=== PATIENT | female | born 2000 | race Caucasian/White ===

== ENCOUNTER 2020-06-24 16:21 | Emergency (ER) | payer MEDICAID, SELFPAY ==
--- NOTE | 2020-06-24 | XR_ITS ---
EXAMINATION: XR CHEST CLINICAL INFORMATION: Cough COMPARISON: Chest x-ray 08/03/2018 TECHNIQUE: Frontal portable views of the chest were obtained. 6:19 PM FINDINGS: The cardiac and mediastinal contours is normal. There is no pulmonary vascular congestion. There is no infiltrate or pleural effusion. IMPRESSION: Normal chest.
[2020-06-24 17:57] VITALS: BP 146/84; PULSE 86; RESP 16; TEMP 37.4; O2SAT 100; BMI 21.9
--- NOTE | 2020-06-24 19:47 | ED_ITS ---
HPI - URI/Sore Throat General Chief Complaint: Dyspnea <Alcides Zhang NP - Last Filed: 06/24/20 19:57> Stated Complaint: fever <Alcides Zhang NP - Last Filed: 06/24/20 19:57> Time Seen by Provider: 06/24/20 19:47 <Alcides Zhang NP - Last Filed: 06/24/20 19:57> Source: patient <Alcides Zhang NP - Last Filed: 06/24/20 19:57> Mode of arrival: ambulatory <Alcides Zhang NP - Last Filed: 06/24/20 19:57> Limitations: no limitations <Alcides Zhang NP - Last Filed: 06/24/20 19:57> History of Present Illness HPI Narrative: cough/runny nose /congestion <Alcides Zhang NP - Last Filed: 06/24/20 19:57> MD elicited complaint: cough, rhinorrhea and nasal congestion <Alcides Zhang NP - Last Filed: 06/24/20 19:57> Onset (ago): day(s) (2 days ) <Alcides Zhang NP - Last Filed: 06/24/20 19:57> Severity: moderate <Alcides Zhang NP - Last Filed: 06/24/20 19:57> Description of mucous: clear <Alcides Zhang NP - Last Filed: 06/24/20 19:57> Able to tolerate fluids by mouth: Yes <Alcides Zhang NP - Last Filed: 06/24/20 19:57> Treatments prior to arrival: none <Alcides Zhang NP - Last Filed: 06/24/20 19:57> Related Data Allergies/Adverse Reactions: Allergies Allergy/AdvReac Type Severity Reaction Status Date / Time No Known Allergies Allergy Verified 06/24/20 17:59 <Alcides Zhang NP - Last Filed: 06/24/20 19:57> Review of Systems Review of Systems: Constitutional: No Weight loss, No Fever, + Chills, No Night Sweats, No Fatigue, No Malaise ENT/Mouth: No Hearing loss, No Ear Pain, No Nasal Congestion, No Sinus Pain, No Hoarseness, No sore throat, No Rhinorrhea, No Swallowing Difficulty Eyes: No Eye Pain, No Swelling, No Redness, No Foreign Body, No Discharge, No Vision Changes Cardiovascular: No Chest Pain, No SOB, No Dyspnea on Exertion, No Orthopnea, No Edema, No Palpitations Respiratory: + Cough, No Sputum, No Wheezing, No Smoke Exposure, No Dyspnea Gastrointestinal: No Nausea, No Vomiting, No Diarrhea, No Constipation, No abdominal Pain, No Hematochezia, No Melena Genitourinary: no irregular bleeding, No Dysuria, No Urinary Frequency, No Hematuria, No Urinary Incontinence, No Urgency, No Flank Pain, No Urinary Flow Changes, No Hesitancy Musculoskeletal: No joint pain, No Myalgias, No Joint Swelling Skin: No Skin Lesions, No rash Neuro: No Weakness, No Numbness, No Paresthesias, No Loss of Consciousness, No Dizziness, No Headache Psych: No Anxiety/Panic, No Depression, No SI/HI/AH/VH, No Social Issues, Heme/Lymph: No Bruising, No Bleeding,No Lymphadenopathy Endocrine: No Polyuria, No Polydipsia, No Temperature Intolerance <Alcides Zhang NP - Last Filed: 06/24/20 19:57> [facility] Past Medical History Attestation statement: The following information was validated with the patient. <Alcides Zhang NP - Last Filed: 06/24/20 19:57> Medical History: Medical History (Updated 06/27/20 @ 00:01 by Nancy Garcia) Patient denies significant medical history <Alcides Zhang NP - Last Filed: 06/24/20 19:57> Social History Social History: Social History Advance Directives: No <Alcides Zhang NP - Last Filed: 06/24/20 19:57> Physical Exam Vital Signs: Vital Signs: Vital Signs Temp Pulse Resp BP Pulse Ox 06/24/20 17:57 99.4 F 86 16 146/84 H 100 Body Mass Index 21.9 Reviewed <Alcides Zhang NP - Last Filed: 06/24/20 19:57> Vital Signs: Vital Signs Temp Pulse Resp BP Pulse Ox 06/24/20 17:57 99.4 F 86 16 146/84 H 100 Body Mass Index 21.9 <Marty Edwards MD - Last Filed: 06/29/20 15:25> Const: General: cooperative and healthy appearing; No acute distress or intoxicated appearing <[facility] Zhang [facility] Last Filed: 06/24/20 19:57> Nutritional Appearance: average body habitus <[facility] Zhang [facility] Last Filed: 06/24/20 19:57> Orientation/consciousness: patient oriented x3 <[facility] Last Filed: 06/24/20 19:57> HENMT: Head: Yes normal to inspection <[facility] Zhang, [facility] Last Filed: 06/24/20 19:57> Ears: hearing grossly normal bilaterally [facility] - Last Filed: 06/24/20 19:57> Eyes: General: appearance normal, both eyes and all related structures <[facility] Last Filed: 06/24/20 19:57> Visual Batres: normal visual batres by confrontation <[facility] Last Filed: 06/24/20 19:57> Neck: Neck: Yes normal visual inspection and No tender <[facility] Last Filed: 06/24/20 19:57> Thyroid: Thyroid normal [facility] Last Filed: 06/24/20 19:57> Chest: Chest palpation & inspection: normal inspection of the chest <[facility] Vicente [facility] Last Filed: 06/24/20 19:57> Resp: Effort & Inspection: normal respiratory effort <[facility] Last Filed: 06/24/20 19:57> Cardio: Jugular venous distension: no JVD <[facility] Last Filed: 06/24/20 19:57> GI: Inspection: Yes normal to inspection <[facility] Last Filed: 06/24/20 19:57> Percussion: Yes normal to percussion <[facility] - Last Filed: 06/24/20 19:57> Auscultation: normal bowel sounds <[facility] - Last Filed: 06/24/20 19:57> : General: Yes no CVA tenderness <[facility] - Last Filed: 06/24/20 19:57> Back/Spine/Pelvis: Back: no CVA tenderness <[facility] - Last Filed: 06/24/20 19:57> Skin: General skin exam: no rashes or lesions noted <Alcides Zhang NP - Last Filed: 06/24/20 19:57> Neuro: General: patient oriented x3 <Alcides Zhang NP - Last Filed: 06/24/20 19:57> Extrem: General: Yes normal to inspection <Alcides Zhang NP - Last Filed: 1 19:57> Course Course Course Narrative: I have reviewed the chart <Marty Edwards MD - Last Filed: 06/29/20 15:25> MDM - URI/Sore Throat Differential Diagnosis Differential diagnosis: Likely upper respiratory infection; Unlikely croup, otitis media, sinusitis, viral infection, bronchitis, influenza and pharyngitis <Alcides Zhang NP - Last Filed: 06/24/20 19:57> Imaging Data Chest x-ray: Radiologist's impression: [place] [id number] XRay Report Signed Patient: Mateo Lange#: [id number] : 2000Acct:[id number] Age/Sex: 19 / FADM Date: 06/24/20 Loc: .ED Attending Dr: Ordering Physician: Generic ED Physician Date of Service: 06/24/20 Procedure(s): XR chest 1V Accession Number(s): [id number] cc: Generic ED Physician~ EXAMINATION: XR CHEST CLINICAL INFORMATION: Cough COMPARISON: Chest x-ray 08/03/2018 TECHNIQUE: Frontal portable views of the chest were obtained. 6:19 PM FINDINGS: The cardiac and mediastinal contours is normal. There is no pulmonary vascular congestion. There is no infiltrate or pleural effusion. IMPRESSION: Normal chest. Dictated By:RICO OLVERA MD Signed By:<Electronically signed by RICO OLVERA MD in OV>06/24/201829 DD/ TD/TT: Horticulture Teacher: LIAN <Alcides Zhang NP - Last Filed: 06/24/20 19:57> Discharge Plan Discharge Clinical Impression: Upper respiratory infection <Alcides Zhang NP - Last Filed: 06/24/20 19:57> Patient Disposition: Home, Self-Care <Alcides Zhang NP - Last Filed: 06/24/20 19:57> Instructions: Viral Syndrome (ED) <Alcides Zhang NP - Last Filed: 06/24/20 19:57> Additional Instructions: Based on your symptoms and history we have sent a COVID-19. Although your RESULT IS PENDING at this time. RESULTS should return within 72 hours. At this time you will be contacted with either NEGATIVE OR POSITIVE results. -Please wait until we contact you for your results. At this time you will be okay for discharge. Please plan for self quarantine for up to 14 days. Do not expose yourself to others. You may not go to work. If testing does come back negative you may return to activities as long as you are no longer having any symptoms for at least 3 days. Please continue to follow cold instructions and wash your hands frequently. You may take Tylenol as directed on the bottle for pain or fever. Patient seen in the emergency department on 03/05/2020 and should be excused from work until negative test results AND until 72 hours without any symptoms AND at least 10 days have passed since symptoms first appeared or since last exposure to COVID-19 positive patient CDC Guidelines for home isolation: - Stay away from others - WEAR A MASK if you are sick AND STAY HOME - Cover your mouth and nose with a tissue when you cough or sneeze. Dispose of tissues in a lined trash can and wash your hands immediately with soap and water for at least 20 seconds. If soap and water are not available, clean hands with alcohol-based hand psych tech that contains at least 60% alcohol. - Clean your hands often with soap and water for at least 20 seconds - Avoid touching your eyes, nose and mouth with unwashed hands - Do not share dishes, drinking glasses, cups, eating utensils, towels, or bedding with other people in your home. After using these items, wash them thoroughly with soap and water or put in the department of natural resources officer. - Clean high-touch surfaces in your isolation area ( sick room and bathroom) every day; let a caregiver clean and disinfect high-touch surfaces in other areas of the home. Clean the area or item with soap and water or another detergent if it is dirty. Then, use a household disinfectant. - Limit contact with pets and animals: If you must care for a pet, wash your hands before and after interacting with them <Alcides Zhang NP - Last Filed: 06/24/20 19:57> Referrals: Physician,None [Primary Care Provider] - 2 days ( your primary care) <Alcides Zhang NP - Last Filed: 06/24/20 19:57> Interventions: ED Discharge Assessment Last Done: 06/24/20 20:01 <Alcides Zhang NP - Last Filed: 06/24/20 19:57> Discharge Date/Time: 06/24/20 20:03 <Alcides Zhang NP - Last Filed: 06/24/20 19:57>
== END 2020-06-24 20:03 | disposition home or self-care (01) ==
PROVIDERS: Emergency Provider Emergency Medicine
DX: J06.9 Acute upper respiratory infection, unspecified (principal); Z20.828 Contact with and (suspected) exposure to other viral communicable diseases; R50.9 Fever, unspecified
CPT/HCPCS: 71045; 87635; 99283; 99284

== ENCOUNTER 2020-06-26 00:12 | Emergency (ER) | payer MEDICAID, SELFPAY ==
[2020-06-26 00:52] VITALS: BP 126/79; PULSE 97; RESP 18; TEMP 37.3; O2SAT 100; BMI 21.5
--- NOTE | 2020-06-26 01:00 | XR_ITS ---
EXAMINATION: XR CHEST CLINICAL INFORMATION: Covid COMPARISON: None TECHNIQUE: Frontal view of the chest was obtained. FINDINGS: The lungs are clear with no focal consolidation. No evidence of pneumothorax, pulmonary edema, or pleural effusions. The cardiomediastinal silhouette is unremarkable. No acute osseous findings. IMPRESSION: No acute cardiopulmonary findings.
--- NOTE | 2020-06-26 01:01 | ED_ITS ---
HPI - General Adult General Chief complaint: General Medical Stated complaint: Chest pressure/Sob -Pending Covid results Time Seen by Provider: 06/26/20 00:59 Source: patient Mode of arrival: ambulatory Limitations: no limitations History of Present Illness HPI narrative: Seen yesterday for COVID symptoms still coughing Onset (ago): day(s) Severity: mild Associated symptoms: cough Treatments prior to arrival: NSAID Related Data Allergies Allergy/AdvReac Type Severity Reaction Status Date / Time No Known Allergies Allergy Verified 06/24/20 17:59 Review of Systems Constitutional: Constitutional: Reports no additional constitutional complaints Eyes: Eyes: Reports no additional eye complaints ENT: Denies dizziness Cardiovascular: Cardiovascular: Reports no additional cardiovascular complaints Respiratory: Respiratory: Reports as per HPI Gastrointestinal: Gastrointestinal: Reports no additional gastrointestinal complaints Genitourinary: Genitourinary: Reports no additional female genitourinary complaints Musculoskeletal: Musculoskeletal: Reports no additional musculoskeletal complaints Integumentary/Breasts: Skin/Breast: Denies rash Neurologic: Reports system reviewed and no additional complaints, except as documented, Denies dizziness and Denies Sensory deficit (Neuro) Psychiatric: Psychiatric: Denies anxiety [facility] Past Medical History Medical History (Updated 06/26/20 @ 02:16 by Marty Edwards MD) Patient denies significant medical history Social History Social History Advance Directives: No Physical Exam Vital Signs: Vital Signs: Vital Signs Temp Pulse Resp BP Pulse Ox 06/26/20 01:23 70 14 104/64 99 06/26/20 00:52 99.1 F 97 18 126/79 100 Body Mass Index 21.5 Const: Other: coughing General: healthy appearing Nutritional Appearance: average body habitus Orientation/consciousness: oriented to person and patient oriented x3 Limitations: no limitations HENMT: Head: Yes normal to inspection Ears: external ears normal General nose exam: Normal external nose present Mouth: Normal oral and palatal mucosa present and oropharynx normal Throat: Yes posterior oropharynx normal Eyes: General: appearance normal, both eyes and all related structures Neck: Other: supple Neck: Yes normal visual inspection Chest: Chest palpation & inspection: normal inspection of the chest Resp: Other: coughing Auscultation: clear to auscultation bilaterally Cardio: Jugular venous distension: no JVD Rate: regular rate Rhythm: regular rhythm Heart sounds: S1 normal heart sound present and S2 normal heart sound present GI: Inspection: Yes normal to inspection Palpation (GI): Soft to palpation, nontender and No hepatosplenomegaly present Auscultation: normal bowel sounds : General: Yes no CVA tenderness Back/Spine/Pelvis: Back: no CVA tenderness Skin: General skin exam: no rashes or lesions noted Neuro: General: oriented to person and patient oriented x3 Cranial nerves: Yes CN's II-XII intact bilaterally Motor exam (neuro): 5/5 motor strength present throughout Sensory Exam: No Sensory deficit (Neuro) Extrem: General: Yes normal to inspection Psych: Appearance: grossly normal Course Course Course Narrative: xray negative, will dc home Medical Decision Making Differential Diagnosis Differential Diagnosis: URI, coronavirus Lab Data Labs: Lab Results 06/26/20 Range/Units 01:25 Urine Test NEGATIVE (NEGATIVE) Discharge Plan Discharge Clinical Impression: Coronavirus infection Patient Disposition: Home, Self-Care Instructions: COVID-19 (Coronavirus Disease 2019) (ED) Additional Instructions: Keep yourself quarantined Referrals: Physician,Unknown [Primary Care Provider] - 2 days
[2020-06-26 01:23] VITALS: BP 104/64; PULSE 70; RESP 14; O2SAT 99
[2020-06-26 01:32] LABS: UPreg QC Valid YES; Urine Pregnancy NEGATIVE (NEGATIVE)
== END 2020-06-26 02:40 | disposition home or self-care (01) ==
PROVIDERS: Emergency Provider Emergency Medicine
DX: U07.1 COVID-19 (principal)
CPT/HCPCS: 71045; 81025; 99283

== ENCOUNTER 2020-11-03 09:37 | Emergency (ER) | payer MEDICAID, SELFPAY ==
--- NOTE | ~2020-11-03 | US_ITS ---
EXAMINATION: US OBSTETRICAL ULTRASOUND (US OB TRANSVAGINAL, US OB <= 14 WEEKS FETUS) CLINICAL INFORMATION: + home , LLQ pain, r/p ectopic COMPARISON: None. LMP: 09/29/2020. Gestational age by maternal dates is 5 weeks 0 days. Estimated date of delivery by maternal dates is 07/06/2021. TECHNIQUE: Ultrasound of the maternal pelvis is performed using transabdominal and transvaginal transducers. Transvaginal imaging is performed due to inadequate visualization transabdominally. M-mode Doppler is also performed. FINDINGS: The endometrium is thickened, enlarged, and heterogeneous, up to 1.8 cm in thickness. There are some anechoic cystic areas but no internal vascularity. No gestational sac, yolk sac, or embryo noted. MATERNAL ADNEXA: The right maternal ovary measures 4.1 x 2.9 x 1.8 cm. There is a 1.8 x 1.5 x 1.5 cm anechoic simple appearing right ovarian cyst. The left maternal ovary measures 2.8 x 1.9 x 1.3 cm. No solid adnexal mass. Small volume of pelvic free fluid is present. US/US OB <= 14 weeks fetus IMPRESSION: No intrauterine identified. In the setting of a positive test, this remains a of uncertain location and an ectopic remains a consideration. Thickened endometrial stripe with no gestational sac seen.
--- NOTE | ~2020-11-03 | US_ITS ---
EXAMINATION: US OBSTETRICAL ULTRASOUND (US OB TRANSVAGINAL, US OB <= 14 WEEKS FETUS) CLINICAL INFORMATION: + home , LLQ pain, r/p ectopic COMPARISON: None. LMP: 09/29/2020. Gestational age by maternal dates is 5 weeks 0 days. Estimated date of delivery by maternal dates is 07/06/2021. TECHNIQUE: Ultrasound of the maternal pelvis is performed using transabdominal and transvaginal transducers. Transvaginal imaging is performed due to inadequate visualization transabdominally. M-mode Doppler is also performed. FINDINGS: The endometrium is thickened, enlarged, and heterogeneous, up to 1.8 cm in thickness. There are some anechoic cystic areas but no internal vascularity. No gestational sac, yolk sac, or embryo noted. MATERNAL ADNEXA: The right maternal ovary measures 4.1 x 2.9 x 1.8 cm. There is a 1.8 x 1.5 x 1.5 cm anechoic simple appearing right ovarian cyst. The left maternal ovary measures 2.8 x 1.9 x 1.3 cm. No solid adnexal mass. Small volume of pelvic free fluid is present. US/US OB transvaginal IMPRESSION: No intrauterine identified. In the setting of a positive test, this remains a of uncertain location and an ectopic remains a consideration. Thickened endometrial stripe with no gestational sac seen.
[2020-11-03 09:53] VITALS: BP 124/82; PULSE 100; RESP 18; TEMP 37.1; O2SAT 99; BMI 20.8
--- NOTE | 2020-11-03 11:06 | ED_ITS ---
HPI - Abdominal Pain General Chief Complaint: Abdominal Pain <ISAAC Zaragoza - Last Filed: 11/03/20 14:54> Stated Complaint: abd pain <ISAAC Zaragoza - Last Filed: 11/03/20 14:54> Time Seen by Provider: 11/03/20 10:41 <ISAAC Zaragoza - Last Filed: 11/03/20 14:54> Source: patient <IASAC Zaragoza - Last Filed: 11/03/20 14:54> Mode of arrival: ambulatory <ISAAC Zaragoza - Last Filed: 11/03/20 14:54> Limitations: no limitations <ISAAC Zaragoza - Last Filed: 11/03/20 14:54> History of Present Illness HPI narrative: 19 y/o female G1 with no medical history presents to the ED from home with reports of 3 days of left lower quadrant/left pelvic pain. She recently took a home test and it was positive. Her LMP was 09/29/20. She denies any vaginal bleeding or discharge. She has been having intermittent dull pain in the left lower pelvic area. No cramping. No urinary symptoms. No fever or chills. <ISAAC Zaragoza - Last Filed: 11/03/20 14:54> MD elicited complaint: abdominal pain <ISAAC Zaragoza - Last Filed: 11/03/20 14:54> Pertinent past history: none <ISAAC Zaragoza - Last Filed: 11/03/20 14:54> Onset (ago): day(s) (3) <ISAAC Zaragoza - Last Filed: 11/03/20 14:54> Pain Consistency: intermittent <ISAAC Zaragoza - Last Filed: 11/03/20 14:54> Location: LLQ <ISAAC Zaragoza - Last Filed: 11/03/20 14:54> Severity: moderate <ISAAC Zaragoza - Last Filed: 11/03/20 14:54> Quality: aching <ISAAC Zaragoza - Last Filed: 11/03/20 14:54> Radiation: none <ISAAC Zaragoza - Last Filed: 11/03/20 14:54> Migration to: no migration <ISAAC Zaragoza Last Filed: 11/03/20 14:54> Exacerbating factors: nothing <ISAAC Zaragoza Last Filed: 11/03/20 14:54> Relieving factors: nothing <ISAAC Zaragoza Last Filed: 11/03/20 14:54> Associated symptoms: denies other symptoms <ISAAC Zaragoza Last Filed: 11/03/20 14:54> Related Data Date of Last Menstrual Period: 09/29/20 <ISAAC Zaragoza Last Filed: 11/03/20 14:54> Home Medications: Home Medications Medication Instructions Recorded Confirmed No Known Home Meds 11/11/20 11/11/20 <ISAAC Zaragoza Last Filed: 11/03/20 14:54> Allergies/Adverse Reactions: Allergies Allergy/AdvReac Type Severity Reaction Status Date / Time No Known Allergies Allergy Verified 11/11/20 10:56 <ISAAC Zaragoza Last Filed: 11/03/20 14:54> Review of Systems Review of Systems Constitutional: No Fever, No Chills Cardiovascular: No Chest Pain, No SOB, No Orthopnea, No Edema Respiratory: No Cough, No Sputum, No Wheezing, No dyspnea Gastrointestinal: No Nausea, No Vomiting, No Diarrhea, + abdominal Pain, No Hematochezia, No Melena Genitourinary: No Dysuria, No Urinary Frequency, No Hematuria Musculoskeletal: No joint pain, No Myalgias Skin: No Skin Lesions, No rash Neuro: No Weakness, No Numbness, No Dizziness, No Headache Psych: + Anxiety/Panic, No Depression Heme/Lymph: No Bruising, No Lymphadenopathy Endocrine: No Polyuria, No Polydipsia <ISAAC Zaragoza Last Filed: 11/03/20 14:54> Physical Exam Vital Signs: Vital Signs: Last Vital Signs Temp 98.9 F 11/03/20 13:12 Pulse 85 11/03/20 13:12 Resp 16 11/03/20 13:12 BP 98/57 L 11/03/20 13:12 Pulse Ox 100 11/03/20 13:12 Body Mass Index 20.8 Appearance: Alert. Oriented X3. No acute distress. Eyes: Pupils equal, round and reactive to light. ENT: Pharynx normal. Neck: Normal inspection. Neck supple. CVS: Normal heart rate and rhythm. Pulses normal. Respiratory: No respiratory distress. Breath sounds normal. Abdomen: Soft with mild LLQ tenderness to deep palpation, no rebound or g uarding. +BS x4 Pelvic exam deferred Skin: Skin warm and dry. Normal skin color. Normal skin turgor. No rashes. Extremities: No lower extremity edema. Neuro: Oriented X 3. No motor deficit. No sensory deficit. <ISAAC Zaragoza - Last Filed: 11/03/20 14:54> Vital Signs: Last Vital Signs Temp 98.9 F 11/03/20 13:12 Pulse 85 11/03/20 13:12 Resp 16 11/03/20 13:12 BP 98/57 L 11/03/20 13:12 Pulse Ox 100 11/03/20 13:12 Body Mass Index 20.8 <Marty Edwards MD - Last Filed: 11/23/20 09:28> Course Course Course Narrative: 19 y/o female G1 who is ~4 weeks presents with LLQ pain, intermittent and not severe per her report. She appears well and her exam is reassuring. Need to r/o ectopic . Will get labs and US. <ISAAC Zaragoza - Last Filed: 11/03/20 14:54> I have reviewed the chart <Marty Edwards MD - Last Filed: 11/23/20 09:28> Reevaluation(s) Reevaluation #1: HCG 81 consistent with 4 weeks gestation. US is not showing a IUD making ectopic a possibility, however it is most likely due to the fact that she is so early and gestational sac isn't seen because it is too small. Case was discussed with Dr. Evans who is recommending repeat quant in 48 hours and follow up in the office. She does not have an SOCIAL SCIENCES LECTURER and is agreeable to plan. Lab slip provided. She was educated on warning signs and symptoms that should prompt urgent ER evaluation. She is stable for discharge. <ISAAC Zaragoza - Last Filed: 11/03/20 14:54> MDM - Abdominal Pain Lab Data Result diagrams: : 11/03/20 11:22 11/03/20 11:22 <ISAAC Zaragoza - Last Filed: 11/03/20 14:54> Labs: Lab Results 11/03/20 11/03/20 11/03/20 Range/Units 11:22 11:22 11:22 WBC 8.9 (4.8-10.8) X10*3/uL RBC 4.83 (4.20-5.50) X10*6/uL Hgb 14.1 (12.0-16.0) g/dl Hct 41.7 (37-47) % MCV 86.3 (80-98) fL MCH 29.2 (27.0-33.0) pg MCHC 33.8 (31.0-35.0) g/dl RDW 13.1 (11.0-16.0) % Plt Count 261 (160-400) X10*3/uL MPV 10.0 (9.4-12.3) fL Immature Gran % (Auto) 0.3 (0.0-0.4) % Neut % (Auto) 67.1 (45-73) % Lymph % (Auto) 24.2 (20-40) % [place] % (Auto) 6.9 (2-11) % Eos % (Auto) 0.9 (0-4) % Baso % (Auto) 0.6 (0-2) % Lymph # (Auto) 2.2 (1.2-4.9) X10*3/uL [place] # (Auto) 0.6 (0.1-1.2) X10*3/uL Eos # (Auto) 0.1 (0.0-0.4) X10*3/uL Baso # (Auto) 0.1 (0.0-0.2) X10*3/uL Abs Immat Gran (auto) 0.03 (0.00-0.03) X10*3/uL Absolute Neuts (auto) 6.0 (2.0-8.3) X10*3/uL Absolute Nucleated RBC 0.000 (0.0-0.012) X10*3/uL Nucleated RBC % (auto) 0.0 (0.0-0.2) /100WBC Hold Blue Top SEE NOTE Sodium 139 (135-145) mmol/L Potassium 3.6 (3.3-5.1) mmol/L Chloride 109 H (96-108) mmol/L Carbon Dioxide 23 (22-29) mmol/L Anion Gap 11 L (12-20) BUN 14 (9-16) mg/dL Creatinine 0.69 (0.5-1.4) mg/dL Estim Creat Clear Calc 102.0 Estimated GFR > 60 Random Glucose 83 (60-115) mg/dL Calcium 9.2 (8.4-10.2) mg/dL Magnesium 2.0 (1.6-2.6) mg/dL Total Bilirubin 0.6 (0.0-1.0) mg/dL Direct Bilirubin 0.2 (0.0-0.5) mg/dL AST 15 (5-31) U/L ALT 11 (0-31) U/L Alkaline Phosphatase 67 (39-117) U/L Total Protein 7.0 (6.5-8.0) g/dL Albumin 4.2 (3.5-5.0) g/dL Beta HCG, Quant 81 mIU/mL Urine Color Urine Appearance Urine pH (5.0-8.0) Ur Specific [place] (1.005-1.025) Urine Protein (NEG-TRACE) MG/DL Urine Glucose (UA) (NEG) MG/DL Urine Ketones (NEG) MG/DL Urine Blood (NEG) Urine Nitrite (NEG) Ur Leukocyte Esterase (NEG) Blood Type Antibody Screen 11/03/20 11/03/20 Range/Units 11:22 13:29 WBC (4.8-10.8) X10*3/uL RBC (4.20-5.50) X10*6/uL Hgb (12.0-16.0) g/dl Hct (37-47) % MCV (80-98) fL MCH (27.0-33.0) pg MCHC (31.0-35.0) g/dl RDW (11.0-16.0) % Plt Count (160-400) X10*3/uL MPV (9.4-12.3) fL Immature Gran % (Auto) (0.0-0.4) % Neut % (Auto) (45-73) % Lymph % (Auto) (20-40) % [place] % (Auto) (2-11) % Eos % (Auto) (0-4) % Baso % (Auto) (0-2) % Lymph # (Auto) (1.2-4.9) X10*3/uL [place] # (Auto) (0.1-1.2) X10*3/uL Eos # (Auto) (0.0-0.4) X10*3/uL Baso # (Auto) (0.0-0.2) X10*3/uL Abs Immat Gran (auto) (0.00-0.03) X10*3/uL Absolute Neuts (auto) (2.0-8.3) X10*3/uL Absolute Nucleated RBC (0.0-0.012) X10*3/uL Nucleated RBC % (auto) (0.0-0.2) /100WBC Hold Blue Top Sodium (135-145) mmol/L Potassium (3.3-5.1) mmol/L Chloride (96-108) mmol/L Carbon Dioxide (22-29) mmol/L Anion Gap (12-20) BUN (9-16) mg/dL Creatinine (0.5-1.4) mg/dL Estim Creat Clear Calc Estimated GFR Random Glucose (60-115) mg/dL Calcium (8.4-10.2) mg/dL Magnesium (1.6-2.6) mg/dL Total Bilirubin (0.0-1.0) mg/dL Direct Bilirubin (0.0-0.5) mg/dL AST (5-31) U/L ALT (0-31) U/L Alkaline Phosphatase (39-117) U/L Total Protein (6.5-8.0) g/dL Albumin (3.5-5.0) g/dL Beta HCG, Quant mIU/mL Urine Color YELLOW Urine Appearance HAZY Urine pH 6.0 (5.0-8.0) Ur Specific [place] >= 1.030 H (1.005-1.025) Urine Protein NEG (NEG-TRACE) MG/DL Urine Glucose (UA) NEG (NEG) MG/DL Urine Ketones NEG (NEG) MG/DL Urine Blood NEG (NEG) Urine Nitrite NEG (NEG) Ur Leukocyte Esterase NEG (NEG) Blood Type O Positive Antibody Screen NEGATIVE <ISAAC Zaragoza - Last Filed: 11/03/20 14:54> Lab Results 11/03/20 11/03/20 11/03/20 Range/Units 11:22 11:22 11:22 WBC 8.9 (4.8-10.8) X10*3/uL RBC 4.83 (4.20-5.50) X10*6/uL Hgb 14.1 (12.0-16.0) g/dl Hct 41.7 (37-47) % MCV 86.3 (80-98) fL MCH 29.2 (27.0-33.0) pg MCHC 33.8 (31.0-35.0) g/dl RDW 13.1 (11.0-16.0) % Plt Count 261 (160-400) X10*3/uL MPV 10.0 (9.4-12.3) fL Immature Gran % (Auto) 0.3 (0.0-0.4) % Neut % (Auto) 67.1 (45-73) % Lymph % (Auto) 24.2 (20-40) % [place] % (Auto) 6.9 (2-11) % Eos % (Auto) 0.9 (0-4) % Baso % (Auto) 0.6 (0-2) % Lymph # (Auto) 2.2 (1.2-4.9) X10*3/uL [place] # (Auto) 0.6 (0.1-1.2) X10*3/uL Eos # (Auto) 0.1 (0.0-0.4) X10*3/uL Baso # (Auto) 0.1 (0.0-0.2) X10*3/uL Abs Immat Gran (auto) 0.03 (0.00-0.03) X10*3/uL Absolute Neuts (auto) 6.0 (2.0-8.3) X10*3/uL Absolute Nucleated RBC 0.000 (0.0-0.012) X10*3/uL Nucleated RBC % (auto) 0.0 (0.0-0.2) /100WBC Hold Blue Top SEE NOTE Sodium 139 (135-145) mmol/L Potassium 3.6 (3.3-5.1) mmol/L Chloride 109 H (96-108) mmol/L Carbon Dioxide 23 (22-29) mmol/L Anion Gap 11 L (12-20) BUN 14 (9-16) mg/dL Creatinine 0.69 (0.5-1.4) mg/dL Estim Creat Clear Calc 102.0 Estimated GFR > 60 Random Glucose 83 (60-115) mg/dL Calcium 9.2 (8.4-10.2) mg/dL Magnesium 2.0 (1.6-2.6) mg/dL Total Bilirubin 0.6 (0.0-1.0) mg/dL Direct Bilirubin 0.2 (0.0-0.5) mg/dL AST 15 (5-31) U/L ALT 11 (0-31) U/L Alkaline Phosphatase 67 (39-117) U/L Total Protein 7.0 (6.5-8.0) g/dL Albumin 4.2 (3.5-5.0) g/dL Beta HCG, Quant 81 mIU/mL Urine Color Urine Appearance Urine pH (5.0-8.0) Ur Specific [place] (1.005-1.025) Urine Protein (NEG-TRACE) MG/DL Urine Glucose (UA) (NEG) MG/DL Urine Ketones (NEG) MG/DL Urine Blood (NEG) Urine Nitrite (NEG) Ur Leukocyte Esterase (NEG) Blood Type Antibody Screen 11/03/20 11/03/20 Range/Units 11:22 13:29 WBC (4.8-10.8) X10*3/uL RBC (4.20-5.50) X10*6/uL Hgb (12.0-16.0) g/dl Hct (37-47) % MCV (80-98) fL MCH (27.0-33.0) pg MCHC (31.0-35.0) g/dl RDW (11.0-16.0) % Plt Count (160-400) X10*3/uL MPV (9.4-12.3) fL Immature Gran % (Auto) (0.0-0.4) % Neut % (Auto) (45-73) % Lymph % (Auto) (20-40) % [place] % (Auto) (2-11) % Eos % (Auto) (0-4) % Baso % (Auto) (0-2) % Lymph # (Auto) (1.2-4.9) X10*3/uL [place] # (Auto) (0.1-1.2) X10*3/uL Eos # (Auto) (0.0-0.4) X10*3/uL Baso # (Auto) (0.0-0.2) X10*3/uL Abs Immat Gran (auto) (0.00-0.03) X10*3/uL Absolute Neuts (auto) (2.0-8.3) X10*3/uL Absolute Nucleated RBC (0.0-0.012) X10*3/uL Nucleated RBC % (auto) (0.0-0.2) /100WBC Hold Blue Top Sodium (135-145) mmol/L Potassium (3.3-5.1) mmol/L Chloride (96-108) mmol/L Carbon Dioxide (22-29) mmol/L Anion Gap (12-20) BUN (9-16) mg/dL Creatinine (0.5-1.4) mg/dL Estim Creat Clear Calc Estimated GFR Random Glucose (60-115) mg/dL Calcium (8.4-10.2) mg/dL Magnesium (1.6-2.6) mg/dL Total Bilirubin (0.0-1.0) mg/dL Direct Bilirubin (0.0-0.5) mg/dL AST (5-31) U/L ALT (0-31) U/L Alkaline Phosphatase (39-117) U/L Total Protein (6.5-8.0) g/dL Albumin (3.5-5.0) g/dL Beta HCG, Quant mIU/mL Urine Color YELLOW Urine Appearance HAZY Urine pH 6.0 (5.0-8.0) Ur Specific [place] >= 1.030 H (1.005-1.025) Urine Protein NEG (NEG-TRACE) MG/DL Urine Glucose (UA) NEG (NEG) MG/DL Urine Ketones NEG (NEG) MG/DL Urine Blood NEG (NEG) Urine Nitrite NEG (NEG) Ur Leukocyte Esterase NEG (NEG) Blood Type O Positive Antibody Screen NEGATIVE <Marty Edwards MD - Last Filed: 11/23/20 09:28> Discharge Plan Discharge Clinical Impression: <Madeline Renschler, PA - Last Filed: 11/03/20 14:54> Patient Disposition: Home, Self-Care <ISAAC Zaragoza - Last Filed: 11/03/20 14:54> Instructions: First Trimester (ED) <ISAAC Zaragoza - Last Filed: 11/03/20 14:54> Additional Instructions: You need to get your hormone repeated on Sunday morning at the lab. Dr. Evans would like to see you in the office on Sunday. You can take Tylenol as needed for discomfort. Do not take any NSAIDS like Motrin, Advil or ibuprofen. If you have worsening pain or if you develop any vaginal bleeding, come back to the ER for further evaluation. <ISAAC Zaragoza - Last Filed: 11/03/20 14:54> Prescriptions: No Action No Known Home Meds RF: 0 <ISAAC Zaragoza - Last Filed: 11/03/20 14:54> Referrals: Jann Evans MD [Physician] - 2 days (, LLQ Pain) <ISAAC Zaragoza - Last Filed: 11/03/20 14:54> Interventions: ED Discharge Assessment Last Done: 11/03/20 14:36 <ISAAC Zaragoza - Last Filed: 11/03/20 14:54> Discharge Date/Time: 11/03/20 14:37 <ISAAC Zaragoza - Last Filed: 11/03/20 14:54> [facility] Past Medical History Medical History: Medical History Patient denies significant medical history <ISAAC Zaragoza - Last Filed: 11/03/20 14:54> Date of Last Menstrual Period: 09/29/20 <ISAAC Zaragoza - Last Filed: 11/03/20 14:54> Social History Social History: Social History Alcohol intake: never Smoking Status: Never smoker Advance Directives: No Advance Directives Information Provided: No Sexual orientation: Straight/Heterosexual Gender identity: female <ISAAC Zaragoza - Last Filed: 11/03/20 14:54>
[2020-11-03 11:37] LABS: MANUAL DIFF FLAG NO
[2020-11-03 11:40] LABS: Basophils Absolute Auto 0.1 X10*3/uL (0.0-0.2); Basophils Percent Auto 0.6 % (0-2); Eosinophils Absolute Auto 0.1 X10*3/uL (0.0-0.4); Eosinophils Percent Auto 0.9 % (0-4); Hematocrit 41.7 % (37-47); Hemoglobin 14.1 g/dl (12.0-16.0); Imm Gran Abs Auto 0.03 X10*3/uL (0.00-0.03); Imm Gran Pct Auto 0.3 % (0.0-0.4); Lymphocytes Absolute Auto 2.2 X10*3/uL (1.2-4.9); Lymphocytes Percent Auto 24.2 % (20-40); Mean Corpuscular HGB Conc 33.8 g/dl (31.0-35.0); Mean Corpuscular Hemoglobin 29.2 pg (27.0-33.0); Mean Corpuscular Volume 86.3 fL (80-98); Monocytes Absolute Auto 0.6 X10*3/uL (0.1-1.2); Monocytes Percent Auto 6.9 % (2-11); Neutrophils Percent Auto 67.1 % (45-73); Platelet Count 261 X10*3/uL (160-400); Red Blood Count 4.83 X10*6/uL (4.20-5.50); Red Cell Distribution Width 13.1 % (11.0-16.0); White Blood Count 8.9 X10*3/uL (4.8-10.8)
[2020-11-03 12:06] LABS: Alanine Aminotransferase 11 U/L (0-31); Albumin Level 4.2 g/dL (3.5-5.0); Alkaline Phosphatase 67 U/L (39-117); Anion Gap 11 (12-20); Aspartate Amino Transferase 15 U/L (5-31); Bilirubin Direct 0.2 mg/dL (0.0-0.5); Bilirubin Total 0.6 mg/dL (0.0-1.0); Blood Urea Nitrogen 14 mg/dL (9-16); Calcium 9.2 mg/dL (8.4-10.2); Carbon Dioxide 23 mmol/L (22-29); Chloride 109 mmol/L (96-108); Estimated Glomerular Filt Rate > 60; Glucose Random 83 mg/dL (60-115); Potassium 3.6 mmol/L (3.3-5.1); Sodium 139 mmol/L (135-145)
[2020-11-03 12:13] LABS: HCG Quantitative 81 mIU/mL
[2020-11-03 13:12] VITALS: BP 98/57; PULSE 85; RESP 16; TEMP 37.2; O2SAT 100
[2020-11-03 13:47] LABS: Glucose Urine UA NEG (NEG); Leukocyte Esterase Urine NEG (NEG); Nitrite Urine NEG (NEG); Specific Gravity - Urine >= 1.030 (1.005-1.025); Urine Blood NEG (NEG); Urine Ketones NEG (NEG); Urine Protein NEG (NEG-TRACE)
[2020-11-03 13:48] LABS: Appearance Urine HAZY; Color Urine YELLOW
--- NOTE | 2020-11-03 14:20 | P.CONOB_ITS ---
PRODUCT SAFETY SPECIALIST - CN: HPI Data of Consult Consult date: 11/03/20 Primary Care Provider: None Physician Consult Narrative Narrative: Called for a consult regarding Concha Cruz is a 19 year old female who presents to the emergency room was a mild left lower quadrant discomfort no vaginal bleeding, no nausea or vomiting no other complaints, CBC chemistry was negative hCG quantitative for was 87 ultrasound was negative no evidence of IUP nor adnexal masses. Blood type O positive cc:: CC: DIRECTOR OF STRATEGY & MOBILE - Review of Systems Review of Systems ROS Unobtainable: All systems reviewed & are unremarkable except as noted in HPI and below Cardiovascular: Denies Palpatations, Loss of consciousness and Chest pain Respiratory: Denies Cough, Wheezing and Shortness of breath Musculoskeletal: Denies Low back pain Gastrointestinal: Denies Heartburn, Constipation, Diarrhea, Nausea and Vomiting Genitourinary: Denies Pain with urination, Burning with urination and Urinary frequency Neurological: Denies Migranes Psychological: Denies Depression OB PMFSH Past Medical History Medical History Patient denies significant medical history Social History Social History Alcohol intake: never Smoking Status: Never smoker Use of substances other than those prescribed or required for medical reasons: No Advance Directives: No Advance Directives Information Provided: Yes Meds Allergies Allergy/AdvReac Type Severity Reaction Status Date / Time No Known Allergies Allergy Verified 06/24/20 17:59 PRODUCT SAFETY SPECIALIST Physical Exam Vitals Vital signs: Temp Pulse Resp BP Pulse Ox 98.9 F 85 16 98/57 L 100 11/03/20 13:12 11/03/20 13:12 11/03/20 13:12 11/03/20 13:12 11/03/20 13:12 Body Mass Index 20.8 Constitutional General Appearance: Healthy appearing, Well-nourished and Well-developed Psychiatric Mood and Affect: active and alert, normal mood and normal affect Skin Appearance: No rashes and No lesions Lungs Respiratory Effort: No intercostal retractions Auscultation: Clear to auscultation Cardiovascular Auscultation: RRR Abdomen Auscultation/Inspection/Palpation: Normal bowel sounds, Soft, Non-distended, No tenderness and Other (Abdominal exam reported benign by ISAAC Zaragoza) PRODUCT SAFETY SPECIALIST - Results Labs CBC & Chem 7: 11/03/20 11:22 11/03/20 11:22 Labs: Short CBC 11/03/20 Range/Units 11:22 WBC 8.9 (4.8-10.8) X10*3/uL Hgb 14.1 (12.0-16.0) g/dl Hct 41.7 (37-47) % Plt Count 261 (160-400) X10*3/uL BMP 11/03/20 11:22 Sodium 139 Potassium 3.6 Chloride 109 H Carbon Dioxide 23 BUN 14 Creatinine 0.69 Calcium 9.2 Liver Function 11/03/20 Range/Units 11:22 Total Bilirubin 0.6 (0.0-1.0) mg/dL Direct Bilirubin 0.2 (0.0-0.5) mg/dL AST 15 (5-31) U/L ALT 11 (0-31) U/L Alkaline Phosphatase 67 (39-117) U/L Albumin 4.2 (3.5-5.0) g/dL Urine 11/03/20 Range/Units 13:29 Urine Color YELLOW Urine Appearance HAZY Urine pH 6.0 (5.0-8.0) Ur Specific [place] >= 1.030 H (1.005-1.025) Urine Protein NEG (NEG-TRACE) MG/DL Urine Glucose (UA) NEG (NEG) MG/DL Antibody Screen Antibody Screen NEGATIVE 11/03/20 11:22 Assessment and Plan (1) : Qualifiers: Weeks of gestation: less than 8 weeks Qualified Code(s): Z3A.01 - Less than 8 weeks gestation of Status: Acute I discussed the case with ISAAC Hurley, hCG in 48 hours. Instruction to be given to the patient to call if pain, or vaginal bleeding occur, signs and symptoms of ectopic and SAB to be given to the patient, will follow-up in the office in 48 hours after hCG
== END 2020-11-03 14:37 | disposition home or self-care (01) ==
PROVIDERS: Physician Assistant; Emergency Provider Emergency Medicine
DX: O26.91 Pregnancy related conditions, unspecified, first trimester (principal); R10.32 Left lower quadrant pain; Z3A.01 Less than 8 weeks gestation of pregnancy
CPT/HCPCS: 36415; 76801; 76817; 80048; 80076; 81003; 83735; 84702; 85025; 86850; 86900; 86901; 96372; 99283; 99284

== ENCOUNTER 2020-11-05 10:30 | Outpatient (REF) | payer MEDICAID, SELFPAY ==
[2020-11-05 12:11] LABS: HCG Quantitative 225 mIU/mL
== END 2020-11-05 10:31 | disposition home or self-care (01) ==
LOC: HO.LAB 10:30
PROVIDERS: PCP Obstetrics & Gynecology; Visit Provider Physician Assistant
DX: O26.899 Other specified pregnancy related conditions, unspecified trimester (principal); R10.9 Unspecified abdominal pain; Z3A.00 Weeks of gestation of pregnancy not specified
CPT/HCPCS: 36415; 84702

== ENCOUNTER 2020-11-08 20:24 | Emergency (ER) | payer MEDICAID, SELFPAY ==
--- NOTE | ~2020-11-08 | US_ITS ---
EXAMINATION: US OBSTETRICAL ULTRASOUND CLINICAL INFORMATION: Vaginal bleeding. COMPARISON: 11/03/2020. TECHNIQUE: Both transabdominal and endovaginal scanning was performed. FINDINGS: An anteverted uterus is present measuring 9.2 x 5.0 x 7.4 cm. A definite gestational sac is not seen but there is a tiny fluid collection seen in the endometrium raising the question of an early gestational sac. Please correlate with hCG levels. The size of this is 4 x 2 x 4 mm which would correspond to a gestational age, if this is a gestational sac, of only 4 weeks 5 days. The right ovary measures 5.1 x 2.6 x 2.3 cm and contains a 1.9 x 1.7 x 1.7 cm cyst. The left ovary measures 3.0 x 2.0 x 1.3 cm and appears unremarkable. Trace fluid is seen seen in the cul-de-sac. US/US OB <= 14 weeks fetus IMPRESSION: Possible tiny gestational sac is present in the endometrial cavity. This may be extremely early and follow-up and correlation with hCG levels is recommended. On the other hand, with an increase in hCG since the prior study and a definitive gestational sac not seen, an ectopic cannot be excluded.
--- NOTE | ~2020-11-08 | US_ITS ---
EXAMINATION: US OBSTETRICAL ULTRASOUND CLINICAL INFORMATION: Vaginal bleeding. COMPARISON: 11/03/2020. TECHNIQUE: Both transabdominal and endovaginal scanning was performed. FINDINGS: An anteverted uterus is present measuring 9.2 x 5.0 x 7.4 cm. A definite gestational sac is not seen but there is a tiny fluid collection seen in the endometrium raising the question of an early gestational sac. Please correlate with hCG levels. The size of this is 4 x 2 x 4 mm which would correspond to a gestational age, if this is a gestational sac, of only 4 weeks 5 days. The right ovary measures 5.1 x 2.6 x 2.3 cm and contains a 1.9 x 1.7 x 1.7 cm cyst. The left ovary measures 3.0 x 2.0 x 1.3 cm and appears unremarkable. Trace fluid is seen seen in the cul-de-sac. US/US OB transvaginal IMPRESSION: Possible tiny gestational sac is present in the endometrial cavity. This may be extremely early and follow-up and correlation with hCG levels is recommended. On the other hand, with an increase in hCG since the prior study and a definitive gestational sac not seen, an ectopic cannot be excluded.
[2020-11-08 21:04] VITALS: BP 112/71; PULSE 83; RESP 18; TEMP 36.9; O2SAT 100; BMI 21.0
[2020-11-08 21:39] LABS: MANUAL DIFF FLAG NO
[2020-11-08 21:41] LABS: Basophils Absolute Auto 0.1 X10*3/uL (0.0-0.2); Basophils Percent Auto 0.5 % (0-2); Eosinophils Absolute Auto 0.2 X10*3/uL (0.0-0.4); Eosinophils Percent Auto 1.2 % (0-4); Hematocrit 38.9 % (37-47); Hemoglobin 13.2 g/dl (12.0-16.0); Imm Gran Abs Auto 0.08 X10*3/uL (0.00-0.03); Imm Gran Pct Auto 0.6 % (0.0-0.4); Lymphocytes Absolute Auto 2.6 X10*3/uL (1.2-4.9); Mean Corpuscular HGB Conc 33.9 g/dl (31.0-35.0); Mean Corpuscular Hemoglobin 29.5 pg (27.0-33.0); Mean Corpuscular Volume 86.8 fL (80-98); Mean Platelet Volume 9.8 fL (9.4-12.3); Monocytes Absolute Auto 0.9 X10*3/uL (0.1-1.2); Monocytes Percent Auto 6.5 % (2-11); Neutrophils Absolute Auto 9.7 X10*3/uL (2.0-8.3); Neutrophils Percent Auto 72.2 % (45-73); Platelet Count 251 X10*3/uL (160-400); Red Blood Count 4.48 X10*6/uL (4.20-5.50); Red Cell Distribution Width 13.2 % (11.0-16.0); White Blood Count 13.4 X10*3/uL (4.8-10.8)
[2020-11-08 21:44] LABS: Glucose Urine UA NEG (NEG); Leukocyte Esterase Urine NEG (NEG); Nitrite Urine NEG (NEG); PH 6.5 (5.0-8.0); Specific Gravity - Urine 1.025 (1.005-1.025); Urine Blood TRACE (NEG); Urine Ketones NEG (NEG); Urine Protein NEG (NEG-TRACE)
[2020-11-08 21:45] LABS: Appearance Urine HAZY; Color Urine YELLOW; UPreg QC Valid YES; Urine Pregnancy POSITIVE (NEGATIVE)
[2020-11-08 21:49] LABS: Bacteria Urine 1+ /LPF; Squamous Epithelial Cell Urine 3+ /LPF; WBC Urine 0-2 /HPF (0-4)
[2020-11-08 22:01] LABS: Alanine Aminotransferase 7 U/L (0-31); Alkaline Phosphatase 64 U/L (39-117); Anion Gap 10 (12-20); Aspartate Amino Transferase 13 U/L (5-31); Bilirubin Total 0.5 mg/dL (0.0-1.0); Blood Urea Nitrogen 11 mg/dL (9-16); Calcium 8.7 mg/dL (8.4-10.2); Carbon Dioxide 28 mmol/L (22-29); Chloride 106 mmol/L (96-108); Creatinine Clr Calc Pharmacy 74.2; Estimated Glomerular Filt Rate > 60; Glucose Random 86 mg/dL (60-115); Sodium 140 mmol/L (135-145); Total Protein 6.5 g/dL (6.5-8.0)
[2020-11-08 22:04] LABS: HCG Quantitative 1257 mIU/mL
--- NOTE | 2020-11-08 23:32 | ED_ITS ---
HPI - Female Genitourinary General Chief complaint: Vaginal Bleeding Stated complaint: Vaginal bleeding/Preg Source: patient Mode of arrival: ambulatory Limitations: no limitations History of Present Illness HPI Narrative: 20-year-old female presents with positive and vaginal bleeding. Was seen on 11/03/2020 in this emergency department and was tested positive for . She presents because she had some spotting but is not currently bleeding at this time MD elicited complaint: vaginal bleeding and possible miscarriage Vaginal bleeding: scant Associated symptoms: denies other symptoms Sexual activity: Yes Patient : Yes Date of Last Menstrual Period: 09/29/20 Related Data : 1 Para: 0 Total number of abortions (spontaneous and elective): 0 Allergies Allergy/AdvReac Type Severity Reaction Status Date / Time No Known Allergies Allergy Verified 11/08/20 21:04 Review of Systems Review of Systems: Constitutional: No Fever, No Chills ENT/Mouth: No sore throat, No Rhinorrhea Eyes: No Eye Pain, No Redness Cardiovascular: No Chest Pain, No SOB Respiratory: No Cough, No Sputum, No Wheezing Gastrointestinal: positive Nausea, No Vomiting, No Diarrhea, positive abdominal pain, Genitourinary: positive irregular bleeding, positive , No Dysuria, No Urinary Frequency, no pelvic pain Musculoskeletal: No Myalgias Skin: No rash Neuro: No Weakness, No Headache Psych: No Anxiety/Panic, No Depression Heme/Lymph: No bruising, No Lymphadenopathy Endocrine: No Polyuria, No Polydipsia Yes all other systems are reviewed and are negative PMFSH Past Medical History Medical History Patient denies significant medical history : 1 Para: 0 Total number of abortions (spontaneous and elective): 0 Date of Last Menstrual Period: 09/29/20 Social History Social History Alcohol intake: never Smoking Status: Never smoker Advance Directives: No Physical Exam Vital Signs: Vital Signs: Last Vital Signs Temp 98.4 F 11/08/20 21:04 Pulse 79 11/09/20 00:00 Resp 16 11/09/20 00:00 BP 114/66 11/09/20 00:00 Pulse Ox 100 11/09/20 00:00 Body Mass Index 21.0 Appearance: Alert. Oriented X3. No acute distress. Eyes: Pupils equal, round and reactive to light. ENT: Pharynx normal. Neck: Normal inspection. Neck supple. CVS: Normal heart rate and rhythm. Pulses normal. Respiratory: No respiratory distress. Breath sounds normal. Abdomen: Soft and nontender. Skin: Skin warm and dry. Normal skin color. Normal skin turgor. Extremities: No lower extremity edema. Neuro: No motor deficit. No sensory deficit. Course Course Course Narrative: 20-year-old female 1 presents with intermittent vaginal spotting. Was seen on 11/03/2020 test , Dr. Evans was consulted, at this time we will repeat hCG and pelvic ultrasound. HCG 1257 which is an increase from prior value of 225 on 10/05/2020. Pelvic ultrasound shows possible gestational sac. Detailed description of risk for spontaneous discussed with the patient, she will follow-up with Dr Evans in 48 hours as instructed. Patient verbalized understanding of and agrees to plan of care to discharge home. MDM - Female Genitourinary MDM Narrative Medical decision making narrative: Threatened Medical Records Attestation: I reviewed the patient's medical records. Lab Data Attestation: I reviewed the patient's lab results. Result diagrams: 11/08/20 21:33 11/08/20 21:33 Labs: Lab Results 11/08/20 11/08/20 11/08/20 Range/Units 21:33 21:33 21:33 WBC 13.4 H (4.8-10.8) X10*3/uL RBC 4.48 (4.20-5.50) X10*6/uL Hgb 13.2 (12.0-16.0) g/dl Hct 38.9 (37-47) % MCV 86.8 (80-98) fL MCH 29.5 (27.0-33.0) pg MCHC 33.9 (31.0-35.0) g/dl RDW 13.2 (11.0-16.0) % Plt Count 251 (160-400) X10*3/uL MPV 9.8 (9.4-12.3) fL Immature Gran % (Auto) 0.6 H (0.0-0.4) % Neut % (Auto) 72.2 (45-73) % Lymph % (Auto) 19.0 L (20-40) % [place] % (Auto) 6.5 (2-11) % Eos % (Auto) 1.2 (0-4) % Baso % (Auto) 0.5 (0-2) % Lymph # (Auto) 2.6 (1.2-4.9) X10*3/uL [place] # (Auto) 0.9 (0.1-1.2) X10*3/uL Eos # (Auto) 0.2 (0.0-0.4) X10*3/uL Baso # (Auto) 0.1 (0.0-0.2) X10*3/uL Abs Immat Gran (auto) 0.08 H (0.00-0.03) X10*3/uL Absolute Neuts (auto) 9.7 H (2.0-8.3) X10*3/uL Absolute Nucleated RBC 0.000 (0.0-0.012) X10*3/uL Nucleated RBC % (auto) 0.0 (0.0-0.2) /100WBC Hold Blue Top SEE NOTE Sodium (135-145) mmol/L Potassium (3.3-5.1) mmol/L Chloride (96-108) mmol/L Carbon Dioxide (22-29) mmol/L Anion Gap (12-20) BUN (9-16) mg/dL Creatinine (0.5-1.4) mg/dL Estim Creat Clear Calc Estimated GFR Random Glucose (60-115) mg/dL Calcium (8.4-10.2) mg/dL Total Bilirubin (0.0-1.0) mg/dL AST (5-31) U/L ALT (0-31) U/L Alkaline Phosphatase (39-117) U/L Total Protein (6.5-8.0) g/dL Albumin (3.5-5.0) g/dL Beta HCG, Quant mIU/mL Urine Color YELLOW Urine Appearance HAZY Urine pH 6.5 (5.0-8.0) Ur Specific [place] 1.025 (1.005-1.025) Urine Protein NEG (NEG-TRACE) MG/DL Urine Glucose (UA) NEG (NEG) MG/DL Urine Ketones NEG (NEG) MG/DL Urine Blood TRACE (NEG) Urine Nitrite NEG (NEG) Ur Leukocyte Esterase NEG (NEG) Urine RBC 1-4 (0) /HPF Urine WBC 0-2 (0-4) /HPF Ur Squamous Epith Cells 3+ /LPF Urine Bacteria 1+ /LPF Urine Test (NEGATIVE) 11/08/20 11/08/20 11/08/20 Range/Units 21:33 21:33 21:33 WBC (4.8-10.8) X10*3/uL RBC (4.20-5.50) X10*6/uL Hgb (12.0-16.0) g/dl Hct (37-47) % MCV (80-98) fL MCH (27.0-33.0) pg MCHC (31.0-35.0) g/dl RDW (11.0-16.0) % Plt Count (160-400) X10*3/uL MPV (9.4-12.3) fL Immature Gran % (Auto) (0.0-0.4) % Neut % (Auto) (45-73) % Lymph % (Auto) (20-40) % [place] % (Auto) (2-11) % Eos % (Auto) (0-4) % Baso % (Auto) (0-2) % Lymph # (Auto) (1.2-4.9) X10*3/uL [place] # (Auto) (0.1-1.2) X10*3/uL Eos # (Auto) (0.0-0.4) X10*3/uL Baso # (Auto) (0.0-0.2) X10*3/uL Abs Immat Gran (auto) (0.00-0.03) X10*3/uL Absolute Neuts (auto) (2.0-8.3) X10*3/uL Absolute Nucleated RBC (0.0-0.012) X10*3/uL Nucleated RBC % (auto) (0.0-0.2) /100WBC Hold Blue Top Sodium 140 (135-145) mmol/L Potassium 4.0 (3.3-5.1) mmol/L Chloride 106 (96-108) mmol/L Carbon Dioxide 28 (22-29) mmol/L Anion Gap 10 L (12-20) BUN 11 (9-16) mg/dL Creatinine 0.94 (0.5-1.4) mg/dL Estim Creat Clear Calc 74.2 Estimated GFR > 60 Random Glucose 86 (60-115) mg/dL Calcium 8.7 (8.4-10.2) mg/dL Total Bilirubin 0.5 (0.0-1.0) mg/dL AST 13 (5-31) U/L ALT 7 (0-31) U/L Alkaline Phosphatase 64 (39-117) U/L Total Protein 6.5 (6.5-8.0) g/dL Albumin 4.0 (3.5-5.0) g/dL Beta HCG, Quant 1257 mIU/mL Urine Color Urine Appearance Urine pH (5.0-8.0) Ur Specific [place] (1.005-1.025) Urine Protein (NEG-TRACE) MG/DL Urine Glucose (UA) (NEG) MG/DL Urine Ketones (NEG) MG/DL Urine Blood (NEG) Urine Nitrite (NEG) Ur Leukocyte Esterase (NEG) Urine RBC (0) /HPF Urine WBC (0-4) /HPF Ur Squamous Epith Cells /LPF Urine Bacteria /LPF Urine Test POSITIVE H (NEGATIVE) Imaging Data US - abdomen: Attestation: I personally reviewed and interpreted this imaging study as follows: Radiologist's impression: EXAMINATION: US OBSTETRICAL ULTRASOUND CLINICAL INFORMATION: Vaginal bleeding. COMPARISON: 11/03/2020. TECHNIQUE: Both transabdominal and endovaginal scanning was performed. FINDINGS: An anteverted uterus is present measuring 9.2 x 5.0 x 7.4 cm. A definite gestational sac is not seen but there is a tiny fluid collection seen in the endometrium raising the question of an early gestational sac. Please correlate with hCG levels. The size of this is 4 x 2 x 4 mm which would correspond to a gestational age, if this is a gestational sac, of only 4 weeks 5 days. The right ovary measures 5.1 x 2.6 x 2.3 cm and contains a 1.9 x 1.7 x 1.7 cm cyst. The left ovary measures 3.0 x 2.0 x 1.3 cm and appears unremarkable. Trace fluid is seen seen in the cul-de-sac. US/US OB <= 14 weeks fetus IMPRESSION: Possible tiny gestational sac is present in the endometrial cavity. This may be extremely early and follow-up and correlation with hCG levels is recommended. On the other hand, with an increase in hCG since the prior study and a definitive gestational sac not seen, an ectopic cannot be excluded. Discharge Plan Discharge Clinical Impression: Vaginal bleeding, Threatened Patient Disposition: Home, Self-Care Instructions: Threatened Miscarriage (ED) Additional Instructions: You were evaluated for vaginal bleeding. Repeat hCG is 1257. Pelvic ultrasound shows a possible gestational sac, too small for heartbeat to be seen, possibly less than 4 weeks . With your symptoms, and vaginal bleeding this could possibly be a miscarriage. Please continue to follow-up with Dr Evans. Thank you for choosing this emergency department for evaluation. Please follow-up with primary care physician as needed. Return to the emergency d epartment for any new, concerning, or worsening symptoms. Referrals: Jann Evans MD [Physician] - 2 days (Early , vaginal bleeding) Stand Alone Forms: Work/School Release Discharge Date/Time: 11/09/20 01:32
[2020-11-09] VITALS: BP 114/66; PULSE 79; RESP 16; O2SAT 100
== END 2020-11-09 01:32 | disposition home or self-care (01) ==
PROVIDERS: Emergency Provider Student in an Organized Health Care Education/Training Program
DX: O20.0 Threatened abortion (principal); Z3A.01 Less than 8 weeks gestation of pregnancy
CPT/HCPCS: 36415; 76801; 76817; 80053; 81001; 81025; 84702; 85025; 99284

== ENCOUNTER → 2020-11-09 13:48 | Outpatient (BNVA) | payer MEDICAID, SELFPAY | PROVIDERS: Visit Provider Advanced Practice Midwife ==

== ENCOUNTER 2020-11-11 09:55 | Outpatient (REF) | payer MEDICAID, SELFPAY ==
[2020-11-11 11:12] LABS: HCG Quantitative 2723 mIU/mL
== END 2020-11-11 09:56 | disposition home or self-care (01) ==
LOC: HO.LAB 09:55
PROVIDERS: Visit Provider Advanced Practice Midwife
DX: O20.0 Threatened abortion (principal); Z3A.00 Weeks of gestation of pregnancy not specified
CPT/HCPCS: 36415; 84702

== ENCOUNTER 2020-11-13 14:40 | Emergency (ER) | payer MEDICAID, SELFPAY ==
[2020-11-13 14:41] VITALS: BP 120/69; PULSE 100; RESP 16; TEMP 36.7; O2SAT 98; BMI 21.0
== END 2020-11-13 18:44 | disposition left against medical advice (07) ==
PROVIDERS: Emergency Provider Emergency Medicine; PCP Internal Medicine
DX: N93.9 Abnormal uterine and vaginal bleeding, unspecified (principal)
CPT/HCPCS: 99281; 99282

== ENCOUNTER 2020-11-16 12:30 | Outpatient (REF) | payer MEDICAID, SELFPAY ==
--- NOTE | ~2020-11-16 | US_ITS ---
EXAMINATION: US OBSTETRICAL ULTRASOUND CLINICAL INFORMATION: Threatened . COMPARISON: 11/09/2020 and 11/03/2020 pelvic ultrasound studies. LMP: 09/29/2020. Gestational age by maternal dates is 6 weeks, 6 days. TECHNIQUE: Multiple 2-D grayscale and Doppler transabdominal/transpelvic pelvic ultrasound images. FINDINGS: There is a single extrauterine gestational sac (with visible yolk sac (0.4 cm), embryo/fetus, and cardiac activity seen in the left adnexa adjacent to the left ovary. HR: 118 beats per minute. CRL (crown rump length): 0.27 cm (5 weeks, 6 days +/- 4 days). Right ovary: 3.1 x 1.7 x 2.7 cm. An anechoic cyst measuring 1.8 cm. Color Doppler showed no abnormal vascular flow. Left ovary: 2.8 x 1.5 x 2.0 cm. The uterus shows no intrauterine gestation. The endometrium measures up to 2.2 cm at the level the fundus. Color Doppler showed no abnormal vascular flow. The cervix is closed without abnormality. Minimal free fluid is seen in the cul-de-sac. US/US OB <= 14 weeks fetus IMPRESSION: 1. Ectopic left adnexal gestation, probably tubular, as detailed above. No intrauterine gestation. This critical result was discussed with Jade Soto RN at 2:15 PM on 11/16/2020 and it was ascertained that the content and urgency of the report was understood at the time of direct communication.
[2020-11-16 14:55] LABS: Hematocrit 37.4 % (37-47); Hemoglobin 12.6 g/dl (12.0-16.0); Mean Corpuscular HGB Conc 33.7 g/dl (31.0-35.0); Mean Corpuscular Hemoglobin 29.3 pg (27.0-33.0); Mean Platelet Volume 9.8 fL (9.4-12.3); Platelet Count 261 X10*3/uL (160-400); Red Cell Distribution Width 13.2 % (11.0-16.0); White Blood Count 13.5 X10*3/uL (4.8-10.8)
[2020-11-16 15:22] LABS: Alanine Aminotransferase 12 U/L (0-31); Aspartate Amino Transferase 15 U/L (5-31); Estimated Glomerular Filt Rate > 60
[2020-11-16 15:30] LABS: HCG Quantitative 4346 mIU/mL
== END 2020-11-16 12:31 | disposition home or self-care (01) ==
LOC: HO.LAB 12:30
PROVIDERS: Obstetrics & Gynecology; Visit Provider Advanced Practice Midwife
DX: O20.0 Threatened abortion (principal); O00.102 Left tubal pregnancy without intrauterine pregnancy
CPT/HCPCS: 36415; 76801; 82565; 84450; 84460; 84702; 85027; 86850; 86900; 99212

== ENCOUNTER 2020-11-17 13:54 | Emergency (ER) | payer MEDICAID, SELFPAY | END 2020-11-17 15:11 | disposition left against medical advice (07) | LOC: HO.ED 15:10 | PROVIDERS: Emergency Provider Emergency Medicine; PCP Internal Medicine | DX: R10.9 Unspecified abdominal pain (principal) ==

== ENCOUNTER → 2021-08-17 09:55 | Outpatient (BNVA) | payer MEDICAID, SELFPAY | PROVIDERS: PCP Internal Medicine; Visit Provider Advanced Practice Midwife | DX: N92.6 Irregular menstruation, unspecified (principal); Z87.59 Personal history of other complications of pregnancy, childbirth and the puerperium | CPT/HCPCS: 81025; 99212 ==

== ENCOUNTER 2021-08-19 14:08 | Outpatient (REF) | payer MEDICAID, SELFPAY ==
--- NOTE | ~2021-08-19 | US_ITS ---
EXAMINATION: OBSTETRICAL ULTRASOUND, FIRST TRIMESTER HISTORY: 20-year-old at 9.0 weeks of gestation History of ectopic Viability LMP: 06/17/2021 COMPARISON: None in this TECHNIQUE: Real time transabdominal imaging with color and M-mode Doppler. FINDINGS: A single, live IUP CRL of 23.3 mm c/w 9.1wks is noted. Heart Rate: 172 beats per minute. Both maternal ovaries are seen and appear normal. GESTATIONAL AGE: 1. GA from LMP: 9.0 wks 2. GA from AUA: 9.1 wks ESTIMATED DATE OF DELIVERY: 1. WONG from LMP: 03/24/2022 2. WONG from AUA: 03/23/2022 US/US OB <= 14 weeks fetus IMPRESSION: 1. A single live IUP 2. Size equals dates 3. Normal ovaries Thank you very much for this referral. This note was generated with a voice recognition program. Please excuse any errors which may have been overlooked during my review of this note. Sometimes these errors may affect the content or meaning of a given sentence.
== END 2021-08-19 14:09 | disposition home or self-care (01) ==
LOC: HO.US 14:08
PROVIDERS: PCP Internal Medicine; Visit Provider Advanced Practice Midwife
DX: N92.6 Irregular menstruation, unspecified (principal); Z87.59 Personal history of other complications of pregnancy, childbirth and the puerperium
CPT/HCPCS: 76801